=== PATIENT | male | born 1985 ===

== ENCOUNTER 2019-09-02 15:19 | Outpatient (REF) | payer MEDICAID, SELFPAY ==
[2019-09-02 19:17] LABS: Bilirubin Negative (Negative); Blood Negative (Negative); Clarity Clear (Clear); Glucose Negative (Negative); Ketones Negative (Negative); Leukocyte Esterase Negative (Negative); Nitrite Negative (Negative); Urobilinogen 0.2 EU/dL (Up TO 0.2); pH 6.5 (5-8)
[2019-09-02 19:25] LABS: ALT 33 U/L (16-63); AST 30 U/L (15-37); Albumin 4.3 g/dL (3.4-5.0); Alkaline Phosphatase 108 U/L (46-116); Amylase 48 U/L (25-115); Anion Gap 12.2 mmol/L (3-11); BUN 8 mg/dL (7-18); Bilirubin, Direct 0.16 mg/dL (0.00-0.20); Bilirubin, Total 0.6 mg/dL (0.2-1.0); CO2 23.8 mmol/L (21.0-32.0); CREATININE 0.82 mg/dL (0.70-1.30); Chloride 102 mmol/L (98-107); Glucose 81 mg/dL (74-106); Lipase 84 U/L (73-393); Potassium 4.5 mmol/L (3.5-5.1); Sodium 138 mmol/L (136-145); Total Protein 7.3 g/dL (6.4-8.2)
[2019-09-05 11:06] LABS: HBs Antibody, Quant <3.1 mIU/mL (See Note); Hepatitis B Surface Ab Negative (See Note)
[2019-09-05 11:55] LABS: Hepatitis C Ab w Rflx HCV PCR Negative (Negative)
[2019-09-05 12:18] LABS: Hep A Total Ab w Rflx IgM Negative (Negative)
== END 2019-09-02 15:39 ==
LOC: NCHCN 15:19
PROVIDERS: Visit Provider Nurse Practitioner Family
DX: R10.11 Right upper quadrant pain (principal); R82.90 Unspecified abnormal findings in urine; Z11.59 Encounter for screening for other viral diseases
CPT/HCPCS: 80048; 80076; 83690; 85027; 86706; 86709; 86803; 81003; 82150

== ENCOUNTER 2021-06-04 20:03 | Outpatient (REF) | payer MEDICAID, SELFPAY ==
[2021-06-04 22:13] LABS: Ferritin 175 ng/mL (26-388)
[2021-06-04 22:21] LABS: Iron 45 ug/dL (65-175); Total Iron Binding Capacity 292 ug/dL (250-450); Transferrin Sat 15 % (20-55)
[2021-06-06 10:40] LABS: Hepatitis A Antibody IgM Negative (Negative); Hepatitis B Core Antibody Negative (Negative); Hepatitis B surface Ag Negative (Negative); Hepatitis C Ab w Rflx HCV PCR Negative (Negative)
== END 2021-06-04 20:04 | disposition home or self-care (01) ==
LOC: NCHCN 20:03
PROVIDERS: Visit Provider Physician Assistant
DX: R79.89 Other specified abnormal findings of blood chemistry (principal)
CPT/HCPCS: 86704; 86709; 86803; 87340; 82728; 83540; 83550